=== PATIENT | male | born 1970 | race Caucasian/White ===

== ENCOUNTER 2018-10-31 11:56 | Day surgery (SDC) | payer OTHER ==
[~2018-10-31] VITALS: Ht 172.7 cm; Wt 69.2 kg
[2018-10-31 14:41] VITALS: Ht 172.7 cm; Wt 69.2 kg
[2018-10-31] MEDS ORDERED: NO MEDS (14:47)
--- NOTE | 2018-10-31 15:42 | PREAC ---
Date/Time of Note Date/Time of Note DATE: 10/31/18 TIME: 15:41 Anesthesia Eval and Record Evaluation Time Pre-Procedure Interview DATE: 10/31/18 TIME: 15:41 Age 48 Sex male NPO: 8 hrs Preoperative diagnosis screening for colon cancer Planned procedure colonoscopy Past Medical History Past Medical History: Includes Pulm: Sleep Apnea Surgery & Anesthesia Issues No known issue Meds Anticoagulation: No Beta Cat within 24 hr: No Reason Beta Cat not given: Pt. not on B-Cat Reported Medications [No Meds] No Conflict Check 10/31/18 Meds reviewed: Yes Allergies Coded Allergies: No Known Allergy (Unverified , 10/31/18) Allergies Reviewed: Yes Labs/Studies Labs Reviewed: Other (N/A) test: N/A Pre-procedure Exam Airway: Adequate mouth opening Mallampati: Mallampati I Teeth: Normal Lung: Normal Heart: Normal ASA Physical Status ASA physical status: 2 Emergency: None Planned Anesthetic General/MAC: MAC Pre-operative Attestations Prior to commencing anesthesia and surgery, the patient was re-evaluated, there was verification of: *The patient's identity *The results of appropriate recent lab work and preoperative vital signs *The above evaluation not changing prior to induction *Anesthetic plan, risk benefits, alternative and complications discussed with patient/family; questions answered; patient/family understands, accepts and wishes to proceed. ANALY TO Oct 31, 2018 15:42
[2018-10-31] MEDS ORDERED: LIDOCAINE 2% (SDV) 5 ML INJ ONE (16:01)
[2018-10-31] MEDS ORDERED: PROPOFOL 20 ML ONE (16:01)
[2018-10-31 16:06] VITALS: BP 134/81; PULSE 61; RESP 18
--- NOTE | 2018-10-31 16:36 | PAC ---
Date/Time of Note Date/Time of Note DATE: 10/31/18 TIME: 16:35 Post-Anesthesia Notes Post-Anesthesia Note Last documented vital signs Vital Signs Date Temp Pulse Resp B/P (MAP) Pulse Ox O2 O2 Flow FiO2 Time Delivery Rate 10/31/18 97.7 61 18 134/81 100 Room Air 16:06 (98) Activity: WNL Respiratory function: WNL Cardiovascular function: WNL Mental status: Baseline Pain reasonably controlled: Yes Hydration appropriate: Yes Nausea/Vomiting absent: Yes Ollie Mays M.D. Oct 31, 2018 16:35
[2018-10-31 17:29] VITALS: BP 113/70; RESP 20
== END 2018-10-31 20:21 | disposition home or self-care (01) ==
LOC: GIL 11:56
PROVIDERS: ATTEND Internal Medicine Gastroenterology
DX: Z12.11 Encounter for screening for malignant neoplasm of colon (principal); D12.4 Benign neoplasm of descending colon
CPT/HCPCS: 45380; 88305; Z7610